=== PATIENT | male | born 1990 | race Two or more races ===

== ENCOUNTER 2017-02-11 17:32 | Emergency (ER) | payer OTHER ==
[~2017-02-11] VITALS: Ht 172.7 cm; Wt 87.1 kg
[2017-02-11 18:39] VITALS: BP 118/68
== END 2017-02-11 18:39 | disposition home or self-care (01) ==
LOC: ED 17:32
DX: S42.491A Other displaced fracture of lower end of right humerus, initial encounter for closed fracture (principal); X50.9XXA Other and unspecified overexertion or strenuous movements or postures, initial encounter; Y93.72 Activity, wrestling; Y99.8 Other external cause status; Y92.89 Other specified places as the place of occurrence of the external cause